=== PATIENT | male | born 1960 | race Caucasian/White ===

== ENCOUNTER 2016-04-22 07:19 | Day surgery (SDC) | payer OTHER, BC ==
[2016-04-22] MEDS ORDERED: LACTATED RINGERS 1,000 ML ONE (07:23)
[2016-04-22] MEDS ORDERED: IV START KIT ONE (07:24)
[2016-04-22] MEDS ORDERED: LACTATED RINGERS 1,000 ML IV SCH (08:00)
[2016-04-22] MEDS ORDERED: PROPOFOL 40 ML IV ONE (08:50)
== END 2016-04-22 09:50 | disposition home or self-care (01) ==
LOC: SDC 07:19
PROVIDERS: ATTEND Family Medicine
PROC: 0DJD8ZZ Inspection of Lower Intestinal Tract, Via Natural or Artificial Opening Endoscopic (ICD-10-PCS; principal; 2016-04-22)
DX: Z12.11 Encounter for screening for malignant neoplasm of colon (principal); K57.30 Diverticulosis of large intestine without perforation or abscess without bleeding; Q43.8 Other specified congenital malformations of intestine
CPT/HCPCS: 45378; J7120